=== PATIENT | female | born 1945 | race Caucasian/White ===

== ENCOUNTER → 2017-02-26 13:37 | Outpatient (CLI) | payer MEDICARE, OTHER | END | disposition home or self-care (01) | LOC: D.CT 13:37 | DX: J18.9 Pneumonia, unspecified organism (principal); M79.1 Myalgia; M54.9 Dorsalgia, unspecified ==

== ENCOUNTER → 2017-06-10 08:14 | Outpatient (CLI) | payer MEDICARE, OTHER ==
[2017-06-10 09:25] LABS: ALBUMIN 3.2 g/dL (3.4-5.0); ANION GAP 12.4 mmol/L (8-16); BILIRUBIN - TOTAL 0.55 mg/dL (0.2-1.3); CALCIUM 8.9 mg/dL (8.5-10.1); CARBON DIOXIDE 27.1 mmol/L (21.0-32.0); CREATININE - SERUM 1.1 mg/dL (0.6-1.3); POTASSIUM - SERUM 4.5 mmol/L (3.5-5.1); PROTEIN - SERUM 7.2 g/dL (6.4-8.2); T4 THYROXINE 8.6 ug/dL (4.7-13.3); THYROID STIMULATING HORMONE 6.72 uIU/mL (0.36-3.74)
[2017-06-10 10:06] LABS: ERYTHROCYTE SEDIMENTATION RATE 21 mm/hr (0-30)
[2017-06-11 06:12] LABS: RAPID PLASMA REAGIN Non Reactive (Non Reactive)
[2017-06-11 09:15] LABS: FOLATE (FOLIC ACID) - SERUM 17.1 ng/mL (>3.0)
== END | disposition home or self-care (01) ==
LOC: D.CT 08:14 → D.CN 09:00 → D.CT 10:00
PROVIDERS: Psychiatry & Neurology Neurology
DX: G60.9 Hereditary and idiopathic neuropathy, unspecified (principal); I48.2 Chronic atrial fibrillation; E03.2 Hypothyroidism due to medicaments and other exogenous substances; Z95.0 Presence of cardiac pacemaker

== ENCOUNTER → 2017-06-28 08:13 | Outpatient (CLI) | payer MEDICARE, OTHER ==
--- NOTE | 2017-07-01 18:00 | EMG ---
PATIENT:TWAN GORMAN DATE OF SERVICE: 06/28/17 MEDICAL RECORD: [id number] DATE OF : 43 LOCATION: [facility] ADMISSION DATE: REFERRING PHYSICIAN: CHANELLE WESTON MD INTERPRETING PHYSICIAN: CHANELLE WESTON MD DATE OF SERVICE: 06/28/2017 REFERRED BY: Dr. Patrick as an outpatient. ELECTROMYOGRAPHIC DATA: Electromyographic examination is limited to both lower extremities and is limited to the nerve conduction studies only as the patient is currently on Coumadin. In the right lower extremity, right peroneal motor stimulation elicits a compound motor action potential with a distal latency of 4.9 milliseconds, peak amplitude of only 700 microvolts and calculated conduction velocity of 34 meters per second. Right tibial motor stimulation elicits a compound motor action potential with a distal latency of 3.6 milliseconds, peak amplitude of only 600 microvolts and calculated conduction velocity of 31 meters per second. Antidromic right sural sensory stimulation elicits a response with a distal latency of 3.0 milliseconds, amplitude of 4 microvolts and calculated conduction velocity of 38 meters per second. The right lower extremity H reflex recording at gastrocsoleus is absent. In the left lower extremity, left peroneal motor stimulation elicits no reliable response. Left tibial motor stimulation elicits a response with a distal latency of 4.8 milliseconds, peak amplitude of only 500 microvolts and calculated conduction velocity of 36 meters per second. Antidromic left sural sensory stimulation elicits no reliable response. The left lower extremity H reflex recording at gastrocsoleus is absent. Needle electrode examination is not performed at this time as the patient is currently on oral anticoagulation with Coumadin. 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 TRANSINT:[id number] Voice Confirmation ID: [id number] DOCUMENT ID: [id number] CHANELLE WESTON MD at 1800 CC: [id number] DICTATION DATE: 06/29/17 0620 ALARM INVESTIGATOR: 06/29/17 1837 [facility] CLI 06/28/17 [place] [address]
== END | disposition home or self-care (01) ==
LOC: D.CN 08:13
DX: G60.9 Hereditary and idiopathic neuropathy, unspecified (principal); I48.2 Chronic atrial fibrillation; E03.2 Hypothyroidism due to medicaments and other exogenous substances; Z95.0 Presence of cardiac pacemaker